=== PATIENT | female | born 1945 | race Caucasian/White ===

== ENCOUNTER → 2018-06-09 18:49 | Outpatient (CLI) | payer MEDICARE ==
[~2018-06-09 18:49] MED LIST: ACETAMINOPHEN500 M1 PO; AMARYL1 MG PO; ANCEF/KEFZOL INJ1 GM IV; BOUDREAUXS113 GM TP; COREG 3.1253.125 MG PO; CYMBALTA60 MG PO; DEXTROSE 50%-WA50 M1 IV; FERRLECIT62.5 MG/2 IVPB; GLIMEPIRIDE1 MG PO; GLUCAGEN1 MG/VIAL IM; GLUCAGEN1 MG/VIAL SC; GLUCAGON1 MG/KIT IM; GLUCOPHAGE500 MG PO; HUMALOG MI100 UNITS/; HYDROCODONE PO; INSTA-GLUCOSE31 GM PO; K-DUR20 MEQ PO; KLOR-CON M2020 MEQ PO; LAC-HYDRIN 5226 ML TP; LASIX40 MG PO; LASIX80 MG PO; LEVAQUIN500 MG PO; LISINOPRIL5 MG PO; LORTAB 5/500 TA1 TA2 PO; NEURONTIN 100100 MG PO; NEURONTIN 300300 MG OR; NEURONTIN 300300 MG PO; NORCO 10/325 TA1 TA1 PO; ONDANSETRON4 MG/2 M3 IV; PERCOCET 10/3251 TA1 PO; PHENERGAN25 M1 PO; PROTONIX40 MG PO; REGLAN10 MG PO; RESTORIL7.5 MG PO; SALINE FLUSH10 ML IV; SANTYL30 GM; SANTYL30 GM TP; SILVASORB HYDRO45 GM TP; VITAMIN C1000 MG PO; VITAMIN C250 MG PO; ZANAFLEX4 MG PO
== END | disposition home or self-care (01) ==
LOC: D.MAMMO 15:00
DX: Z12.31 Encounter for screening mammogram for malignant neoplasm of breast (principal)

== ENCOUNTER 2018-12-02 09:03 | Emergency (ER) | payer MEDICARE, MEDICAID ==
[~2018-12-02] VITALS: Ht 152.4 cm; Wt 113.6 kg
[2018-12-02 09:06] VITALS: Ht 152.4 cm; Wt 113.6 kg
[2018-12-02 09:47] LABS: BASOPHILS 0.2 % (0-2); EOSINOPHILS 0.2 % (0-7); HEMATOCRIT 32.3 % (36.0-48.0); HEMOGLOBIN 10.9 g/dL (12-16); IMMATURE GRANULOCYTES 0.5 % (0-5); LYMPHOCYTES 3.4 % (15-50); MCHC 33.7 g/dL (31.0-37.0); MCV 94.7 fL (80.0-100.0); MEAN PLATELET VOLUME 9.2 fL (7.4-10.4); MONOCYTES 5.7 % (2-11); PLATELET COUNT 167 10x3/uL (130-400); RBC 3.41 10x6/uL (4.00-5.40); RDW 12.9 % (11.5-14.5); WBC 17.5 10x3/uL (4.8-10.8)
[2018-12-02 09:59] LABS: ALBUMIN 2.9 g/dL (3.4-5.0); ANION GAP 14.3 mmol/L (8-16); BILIRUBIN - TOTAL 0.76 mg/dL (0.2-1.3); CALCIUM 8.5 mg/dL (8.5-10.1); CARBON DIOXIDE 27.9 mmol/L (21.0-32.0); CREATININE - SERUM 1.5 mg/dL (0.6-1.3); POTASSIUM - SERUM 3.2 mmol/L (3.5-5.1); PROTEIN - SERUM 7.4 g/dL (6.4-8.2)
[2018-12-02 09:59] LABS: APPEARANCE CLEAR (CLEAR); BILIRUBIN NEGATIVE (NEGATIVE); COLOR YELLOW (YELLOW); GLUCOSE NEGATIVE (NEGATIVE); KETONE NEGATIVE (NEGATIVE); NITRITE NEGATIVE (NEGATIVE); PROTEIN 2+ mg/dL (NEGATIVE); UROBILINOGEN NORMAL (NORMAL)
[2018-12-02 10:07] LABS: BACTERIA FEW /hpf (NONE SEEN); EPITHELIAL CELLS OCC /hpf (0-5); HYALINE CAST OCC /lpf (NONE SEEN); RED CELLS - URINE 0-5 /hpf (0-5); WHITE CELLS - URINE 0-5 /hpf (0-5)
[2018-12-02 13:08] VITALS: BP 139/62
[2018-12-06 18:07] LABS: AEROBE ID Final report (())
== END 2018-12-02 13:09 | disposition home or self-care (01) ==
LOC: D.ER 09:03
PROVIDERS: Family Medicine
DX: B34.9 Viral infection, unspecified (principal); E87.0 Hyperosmolality and hypernatremia; E87.6 Hypokalemia; E11.9 Type 2 diabetes mellitus without complications; I10 Essential (primary) hypertension; I73.9 Peripheral vascular disease, unspecified

== ENCOUNTER → 2021-01-10 18:09 | Outpatient (CLI) | payer MEDICARE, MEDICAID ==
[2018-12-02 09:06] VITALS: BMI 48.9
[2021-01-10 20:29] LABS: BACTERIA MANY HPF (NONE SEEN); BILIRUBIN NEGATIVE (NEGATIVE); KETONE NEGATIVE (NEGATIVE); NITRITE NEGATIVE (NEGATIVE); SQUAMOUS EPITHELIAL 0-5 HPF (0-4); UROBILINOGEN NORMAL mg/dL (< 2); WHITE CELLS - URINE >50 HPF (0-4)
== END | disposition home or self-care (01) ==
LOC: D.LABREF 18:09
PROVIDERS: ATTEND Family Medicine
DX: N18.30 Chronic kidney disease, stage 3 unspecified (principal); N13.30 Unspecified hydronephrosis; B37.49 Other urogenital candidiasis

== ENCOUNTER → 2021-01-17 16:01 | Outpatient (CLI) | payer MEDICARE, MEDICAID ==
[2018-12-02 09:06] VITALS: BMI 48.9
[2021-01-17 16:22] LABS: ANION GAP 14.4 mmol/L (8-16); CALCIUM 8.6 mg/dL (8.5-10.1); CARBON DIOXIDE 26.2 mmol/L (21.0-32.0); CREATININE - SERUM 3.3 mg/dL (0.6-1.3); POTASSIUM - SERUM 5.6 mmol/L (3.5-5.1)
== END | disposition home or self-care (01) ==
LOC: D.LABREF 16:01
PROVIDERS: ATTEND Family Medicine
DX: E11.621 Type 2 diabetes mellitus with foot ulcer (principal); N13.30 Unspecified hydronephrosis; E11.40 Type 2 diabetes mellitus with diabetic neuropathy, unspecified; I12.9 Hypertensive chronic kidney disease with stage 1 through stage 4 chronic kidney disease, or unspecified chronic kidney disease